=== PATIENT | female | born 1960 | race Caucasian/White ===

== ENCOUNTER 2019-06-15 07:34 | Outpatient (CLI) | payer MEDICARE, MEDICAID, SELFPAY ==
--- NOTE | 2019-06-15 08:10 | NMCV_ITS ---
NM graeme perf SPECT r/s* [id number] Trinidad Murphy Age: 58 Gender: F : 1960 Exam Date: 06/15/2019 08:10 Ordering Phys: Ivan Clarke Technologist: JESSIE Nj Exam Location: [facility] Indications: CHEST PAIN STRESS TEST Please see separate stress test report in [facility] for full findings IMAGE PROTOCOL Rest/Stress 1 Lexiscan Day Radiopharmaceutical Dose (mCi) Administration Site Administered by Rest: Tc-99m 10.8 IV JESSIE Mello Sestamibi Stress:Tc-99m 32.8 IV JESSIE Mello Sestamibi Rest: 15-Jun-2019 60 Discovery 630 Stress: 15-Jun-2019 30 Discovery 630 0.4mg Lexiscan. Supine position only as patient was unable to lay prone. SPECT RESULTS Technical Quality: Good Raw Data Analysis: Breast attenuation Image Corrections: No attenuation or motion correction applied Summed Stress Score: 0 Summed Rest Score: 0 Summed Difference Score: 0 PERFUSION FINDINGS SPECT images demonstrate homogeneous tracer distribution throughout the myocardium. FUNCTIONAL RESULTS (calculated via Gated SPECT) Stress Image LV EF (%): 73 Stress EDV (mL):90 TID: 0.92 Stress ESV (mL):24 Rest Image LV EF (%): 73 FUNCTIONAL FINDINGS: There is normal left ventricular systolic function. IMPRESSIONS Myocardial perfusion imaging is normal and low probability for obstructive coronary artery disease. EKG segment will be documented separately. Ana Carpenter MD (Electronically Signed) Final Date: 15 June 2019 13:11 S
--- NOTE | 2019-06-15 08:10 | ECG_ITS ---
NAME OF STUDY: LEXISCAN SESTAMIBI STRESS TEST INDICATION: Chest Pain, NOTE: Please note that this is the electrocardiogram portion of the Lexiscan/Sestamibi stress test. The perfusion scan will be documented separately. DATA: Baseline heart rate was 58 beats per minute. Baseline blood pressure was 112/71 millimeters of mercury. Target heart rate was 161. Maximum heart rate achieved was 106. which was 65 % of the predicted target heart rate. Maximum blood pressure was 137/74 millimeters of mercury. The reason for ending the test was completion of the protocol. The patient did not experience any symptoms. ELECTROCARDIOGRAM: BASELINE: Sinus rhythm. Normal axis. Old anteroseptal myocardial infarction EXERCISE: After Lexiscan injection, no significant ST-T ST changes suggestive of ischemia noted CONCLUSION: Please note due to baseline abnormality of the EKG specificity and sensitivity of the EKG portion of LexiScan MIBI stress test will be low 1. EKG not suggestive of ischemia 2. Lexiscan injection unremarkable. 3. Perfusion scan will be documented separately. Electronically Signed On 06-15-2019 13:33:42 CDT by Ana Carpenter M.D. [email or web address]
[2019-06-15 08:15] VITALS: BMI 31.1
[2019-06-15] MEDS: regadenoson 0.4 Mg/5 ml Syringe IVP (09:34)
[2019-06-15 09:50] VITALS: BP 130/64; PULSE 72
== END 2019-06-15 07:35 | disposition home or self-care (01) ==
LOC: RAD 07:42
PROVIDERS: Family Provider Family Medicine; PCP Family Medicine; Visit Provider Family Medicine
DX: R07.9 Chest pain, unspecified (principal)
CPT/HCPCS: 78452; 93017; A9500; J2785

== ENCOUNTER 2019-07-15 10:26 | Outpatient (CLI) | payer MEDICARE, MEDICAID, SELFPAY ==
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
== END 2019-07-15 10:27 | disposition home or self-care (01) ==
LOC: RADSHAW 10:32
PROVIDERS: PCP Family Medicine; Visit Provider Family Medicine
DX: N64.52 Nipple discharge (principal)
CPT/HCPCS: 76642; 77066

== ENCOUNTER 2021-10-24 10:11 | Outpatient (CLI) | payer MEDICARE, MEDICAID, SELFPAY ==
--- NOTE | 2021-10-24 11:38 | MM_ITS ---
WS: [id number] Bilateral screening 3D tomosynthesis digital mammogram, 10/24/2021 Clinical Data: SCREENING Comparison: 07/14/2019, 12/22/2008, 03/10/2007. Findings: The breast parenchymal pattern shows fat replacement. No spiculated masses or clustered calcification s are seen. There are no secondary signs of carcinoma. There are lymph nodes in both axilla. MM/[place] [id number] Impression: 1. Negative bilateral mammogram unchanged. 2. Recommend annual screening mammograms. BIRADS: 1-Negative FOLLOW UP: 1 Year Follow-up The CAD dry cleaning checker was used.
== END 2021-10-24 10:12 | disposition home or self-care (01) ==
LOC: RAD 10:13
PROVIDERS: PCP Family Medicine; Visit Provider Family Medicine
DX: Z12.31 Encounter for screening mammogram for malignant neoplasm of breast (principal)
CPT/HCPCS: 77063; 77067

== ENCOUNTER 2021-12-19 14:40 | Outpatient (CLI) | payer MEDICARE, MEDICAID, SELFPAY ==
--- NOTE | 2021-12-19 15:00 | MR_ITS ---
WS: [id number] MRI LUMBAR SPINE NONCONTRAST HISTORY: LUMBOSACRAL SPINAL STENOSIS COMPARISON: None available. TECHNIQUE: Sagittal and axial multisequence imaging is submitted. Normal lumbar alignment with no compression fractures or marrow edema. Mild disc space narrowing and desiccation. No marrow edema or fracture. Conus terminates normally at L1-2 disc level. L1-L2: Normal. L2-L3: Mild annular disc bulging with ligamentum flavum and facet arthritis. Mild encroachment into t he subarticular recesses. L3-L4: Mild annular disc bulge. LEFT paracentral disc protrusion. Disc asymmetrically bulges to the R IGHT. There is moderate ligamentum flavum and facet arthritis. Moderate central with bilateral subart icular recess and RIGHT foraminal stenosis. Only mild stenosis on the LEFT. There is mild encroachmen t upon the traversing L4 nerve roots. L4-L5: Diffuse annular disc bulging with ligamentum flavum and facet arthritis. Small amount of fluid in the LEFT facet joint. Moderate central and bilateral subarticular recess stenosis. There is encro achment upon the traversing L5 nerve roots bilaterally. Only mild foraminal stenosis. Fluid in the fa cet joints bilaterally. L5-S1: Mild disc bulging. No significant stenosis. LEFT renal cyst 12 mm. MR/MR lumbar spine wo con* [id number] IMPRESSION: 1. Moderate central and bilateral subarticular recess and RIGHT foraminal sten osis at L3-4 with encroachment upon the traversing L4 nerve roots. 2. Moderate central and bilateral subarticular recess stenosis at L4-5. Encroa chment and deformity upon the traversing L5 nerve roots. 3. Bilateral facet joint arthritis is most significant at L3-4 and L4-5 contri buting to the stenosis.
== END 2021-12-19 14:41 | disposition home or self-care (01) ==
LOC: RAD 14:43
PROVIDERS: PCP Family Medicine; Visit Provider Anesthesiology
DX: M51.17 Intervertebral disc disorders with radiculopathy, lumbosacral region (principal); M48.07 Spinal stenosis, lumbosacral region; M47.816 Spondylosis without myelopathy or radiculopathy, lumbar region
CPT/HCPCS: 72148